=== PATIENT | male | born 1990 | race Caucasian/White ===

== ENCOUNTER 2017-09-06 15:56 | Emergency (ER) | payer OTHER | END 2017-09-06 21:45 | disposition home or self-care (01) | LOC: FTE 15:56 | DX: K59.00 Constipation, unspecified (principal) | CPT/HCPCS: 74018; 99283-25 ==

== ENCOUNTER 2017-12-12 11:17 | Day surgery (SDC) | payer OTHER ==
[2017-12-12] MEDS ORDERED: SOD CHLORIDE 0.9% 1,000 ML IV (12:30)
[2017-12-12] MEDS ORDERED: CEFAZOLIN 2 GM/50 ML (PMX) 50 ML IVPB (12:30)
== END 2017-12-15 13:46 | disposition home or self-care (01) ==
LOC: SDS 11:17
DX: R22.2 Localized swelling, mass and lump, trunk (principal); Z53.9 Procedure and treatment not carried out, unspecified reason

== ENCOUNTER 2017-12-16 08:18 | Day surgery (SDC) | payer OTHER | END 2017-12-16 11:14 | disposition home or self-care (01) | LOC: GIL 08:18 | DX: K29.50 Unspecified chronic gastritis without bleeding (principal); K21.0 Gastro-esophageal reflux disease with esophagitis; K64.8 Other hemorrhoids; K64.4 Residual hemorrhoidal skin tags | CPT/HCPCS: 43239; 88305; 88312 ==

== ENCOUNTER 2017-12-26 07:07 | Day surgery (SDC) | payer OTHER ==
[~2017-12-26 07:07] MED LIST: SUCCINYLCHOLINE CHLORIDE 100 MG/5 ML SYG IV
[2017-12-26] MEDS ORDERED: CEFAZOLIN 2 GM/50 ML (PMX) 50 ML IVPB (08:30)
[2017-12-26] MEDS ORDERED: SOD CHLORIDE 0.9% 1,000 ML IV (08:30)
[2017-12-26] MEDS ORDERED: GLYCOPYRROLATE 0.4 MG INJ (08:48)
[2017-12-26] MEDS ORDERED: CEFAZOLIN 1 GM INJ (08:48)
[2017-12-26] MEDS ORDERED: PROPOFOL 20 ML (08:48)
[2017-12-26] MEDS ORDERED: NEOSTIGMINE 3 MG/3 ML SYRINGE (08:48)
[2017-12-26] MEDS ORDERED: ROCURONIUM 50 MG INJ (08:48)
[2017-12-26] MEDS ORDERED: DEXAMETHASONE 4 MG/ML 1 ML INJ (08:49)
[2017-12-26] MEDS ORDERED: MIDAZOLAM 1 MG/ML 2 ML INJ (08:49)
[2017-12-26] MEDS ORDERED: ONDANSETRON 4 MG INJ (08:49)
[2017-12-26] MEDS ORDERED: FENTAnyl 50 MCG/ML VIAL (08:49)
[2017-12-26] MEDS ORDERED: KETOROLAC 30 MG INJ (09:15)
[2017-12-26] MEDS: BUPIVACAINE 0.25% (MPF) 30 ML INJ (09:17)
[2017-12-26] MEDS: BUPIVACAINE 0.25% (MPF) 30 ML INJ INJ (09:55)
[2017-12-26] MEDS ORDERED: HYDROCODONE/APAP (10/325) TAB PO (10:00)
== END 2017-12-26 11:30 | disposition home or self-care (01) ==
LOC: SDS 07:07
DX: D17.1 Benign lipomatous neoplasm of skin and subcutaneous tissue of trunk (principal); E66.9 Obesity, unspecified; Z68.37 Body mass index [BMI] 37.0-37.9, adult
CPT/HCPCS: 14001; 88307

== ENCOUNTER 2019-02-08 10:37 | Emergency (ER) | payer OTHER ==
[2019-02-08] MEDS: DEXAMETHASONE 10 MG/ML 1 ML INJ IM (12:28)
[2019-02-08] MEDS: DIAZEPAM 5 MG TAB PO (12:28)
[2019-02-08] MEDS: KETOROLAC 60 MG INJ IM (12:28)
== END 2019-02-08 12:50 | disposition home or self-care (01) ==
LOC: FTE 10:37
DX: M54.9 Dorsalgia, unspecified (principal)
CPT/HCPCS: 96372; 99284-25